=== PATIENT | male | born 1980 | race Caucasian/White ===

== ENCOUNTER 2018-09-09 13:50 | Emergency (ER) | payer BC ==
[~2018-09-09] VITALS: Ht 165.1 cm; Wt 77.2 kg
[2018-09-09 13:58] VITALS: BP 153/87; PULSE 80; RESP 20; Ht 165.1 cm; Wt 77.2 kg
--- NOTE | 2018-09-09 15:58 | ERD ---
ER Documentation Chief Complaint Chief Complaint Complains of feeling palpitations HPI 37-year-old male, previously healthy, presents to the emergency department complaining of sudden onset of dizziness, chest pain, palpitations associated with perioral numbness and finger paresthesias. The patient states that she has been under a lot of stress and persistent worrying about health and family. He has had similar episodes in the past but less intense, with extensive work-up in the emergency department, that according to the patient was negative for cardiovascular disease. He is not taking any medication at this time. History provided by patient. ROS All systems reviewed and are negative except as per history of present illness. Medications Home Meds Active Scripts Lorazepam* (Ativan*) 0.5 Mg Tablet, 0.5 MG PO Q8H PRN for ANXIETY, #10 TAB Prov:KATHRIN TERRAZAS MD 09/09/18 Allergies Allergies: Coded Allergies: No Known Allergy (Unverified , 09/09/18) PMhx/Soc History of Surgery: No Anesthesia Reaction: No Hx Neurological Disorder: No Hx Respiratory Disorders: No Hx Cardiac Disorders: No Hx Psychiatric Problems: No Hx Miscellaneous Medical Probl: Yes (high Cholesterol) Hx Alcohol Use: Yes (socially) Hx Substance Use: No Hx Tobacco Use: No Smoking Status: Current every day smoker FmHx Family History: No diabetes, No coronary disease Physical Exam Vitals Vital Signs Date Temp Pulse Resp B/P (MAP) Pulse Ox O2 O2 Flow FiO2 Time Delivery Rate 09/09/18 99.4 80 20 153/87 100 13:58 (109) Physical Exam Const: No acute distress Head: Atraumatic Eyes: Normal Conjunctiva ENT: Normal External Ears, Nose and Mouth. Neck: Full range of motion. No meningismus. Resp: Clear to auscultation bilaterally Cardio: Regular rate and rhythm, no murmurs Abd: Soft, non tender, non distended. Normal bowel sounds Skin: No petechiae or rashes Back: No midline or flank tenderness Ext: No cyanosis, or edema Neur: Awake and alert Psych: Normal Mood and Affect Results 24 hrs EKG read by me: Rate/Rhythm: Regular rate and rhythm at a rate of 67 Intervals: Normal No acute ST changes. No T wave inversion Impression: No evidence of acute ischemia or arrhythmia Procedures/MDM Patient presents complaining of one episode today of chest pain, palpitations, shortness of breath and perioral paresthesias. Vital signs stable, Physical exam unremarkable, neurovascular exam intact. Differential diagnosis include but not limited to: Depression, anxiety, migraine, thyroid disease, electrolyte imbalance. Low suspicion for acute coronary event, aortic dissection, CVA. Pertinent Data: 12 Lead ECG: Sinus rhythm, no ST changes, normal T wave, normal intervals Physical examination and clinical presentation consistent most likely with anxiety. During the ED course the patient remained stable, no new complaints. Results and clinical impression discussed with patient who agrees with management. The patient is stable to be treated outpatient and will be discharged home with a Rx for lorazepam, some side effects of prescribed medications (headache, rash, nausea, vomiting, diarrhea, drowsiness, habituation, bleeding, hypertension, interactions with other medications) were reviewed. The patient was instructed to follow up with the primary care provider in the next 48h. If symptoms persist, worsen or new symptoms develop, then patient should return to the ED immediately. Instructions explained and given directly by me to the patient with acknowledgment and demonstrated understanding. Disclaimer: Inadvertent spelling and grammatical errors are likely due to EHR/dictation software use and do not reflect on the overall quality of patient care. Also, please note that the electronic time recorded on this note does not necessarily reflect the actual time of the patient encounter. Departure Diagnosis: Primary Impression: Anxiety Condition: Stable Patient Instructions: Your Body's Response to Anxiety Additional Instructions: Thank you very much for allowing us to participate in your care. Your health and safety is our top priority at [facility]. Call your primary care doctor TOMORROW for an appointment during the next 2-4 days and bring all the information provided. Have prescriptions filled and follow precisely the directions on the label. If the symptoms get worse and your provider is unavailable, return to the Emergency Department immediately. KATHRIN TERRAZAS MD September 09, 2018 15:58
[2018-09-09] MEDS ORDERED: LORA-441 PO (15:59)
== END 2018-09-09 16:23 | disposition home or self-care (01) ==
LOC: FTE 13:50
DX: F41.9 Anxiety disorder, unspecified (principal); F17.210 Nicotine dependence, cigarettes, uncomplicated
CPT/HCPCS: 99283

== ENCOUNTER 2018-10-14 12:51 | Emergency (ER) | payer BC ==
[~2018-10-14] VITALS: Ht 172.7 cm; Wt 74.0 kg
[~2018-10-14 12:51] MED LIST: LORA-441 PO
[2018-10-14 12:59] VITALS: Ht 172.7 cm; Wt 74.0 kg
[2018-10-14] MEDS ORDERED: IBUP-1542 PO (13:23)
--- NOTE | 2018-10-14 13:27 | ERD ---
ER Documentation Chief Complaint Chief Complaint SOB, PALPATATIONS, CHEST PAIN ON RIGHT SIDE X30 MINUTES HPI This is a 38-year-old man complaining of sharp nonexertional nonradiating right- sided chest pain for the last 2 to 3 days, today he has had the pain for about 30 minutes but states usually last for a few seconds and resolve spontaneously, he has had similar symptoms in the past and states he feels anxious because his physician once told him he has hypercholesterolemia. He does have an appointment with his new primary care physician in 3 days and states he will have his cholesterol level checked again on Wednesday. Patient denies shortness of breath, no dizziness or loss of consciousness, no headache or blurry vision. Patient has no personal or family history of early coronary artery disease or sudden cardiac ROS All systems reviewed and are negative except as per history of present illness. Medications Home Meds Active Scripts Ibuprofen* (Motrin*) 600 Mg Tab, 600 MG PO Q8 PRN for PAIN AND/OR INFLAMMATION, #30 TAB Prov:RUSTY DYSON MD 10/14/18 Lorazepam* (Ativan*) 0.5 Mg Tablet, 0.5 MG PO Q8H PRN for ANXIETY, #10 TAB Prov:KATHRIN TERRAZAS MD 09/09/18 Allergies Allergies: Coded Allergies: No Known Allergy (Unverified , 09/09/18) PMhx/Soc Medical and Surgical Hx: pt denies Surgical Hx History of Surgery: No Anesthesia Reaction: No Hx Neurological Disorder: No Hx Respiratory Disorders: No Hx Cardiac Disorders: No Hx Psychiatric Problems: No Hx Miscellaneous Medical Probl: Yes (high Cholesterol) Hx Alcohol Use: Yes (socially) Hx Substance Use: No Hx Tobacco Use: No Smoking Status: Never smoker Physical Exam Vitals Vital Signs Date Temp Pulse Resp B/P (MAP) Pulse Ox O2 O2 Flow FiO2 Time Delivery Rate 10/14/18 98.0 69 20 124/77 100 Room Air 14:07 (93) 10/14/18 99.6 93 16 146/82 99 12:59 (103) Physical Exam GENERAL: Well-developed, well-nourished, well-hydrated, appears anxious, afebrile HEENT: Moist mucous membranes, pink conjunctiva, no cervical spine tenderness or step-off deformities, no goiter, no jaundice or icterus, extraocular movements intact without pain. No submandibular induration, and no pharyngeal erythema NEURO: Alert and oriented 3, cranial nerves II through XII intact bilaterally, pupils equal round reactive to light, no focal deficits or facial asymmetry, sensation intact distally Strength 5/5 in upper and lower extremities bilaterally CARDIAC: Tachycardic and regular, no murmurs rubs or gallops LUNGS: Clear bilaterally no wheezing crackles or stridor SKIN: Warm and dry to touch, no abrasions, contusions, or hematomas, no lacerations, no ecchymosis, no target lesions, and without ulcers EXTREMITIES: No clubbing cyanosis or edema, calves are bilaterally symmetrical, no Homans sign, no popliteal cord sign. Distal pulses equal and bilateral PSYCH: Anxious appearing Results 24 hrs Current Medications Medications Dose Sig/Letty Start Time Status Last (Trade) Ordered Route PRN Stop Time Admin Dose Reason Admin Ibuprofen 600 mg ONCE ONCE 10/14/18 DC 10/14/18 (Motrin) PO 13:30 13:27 10/14/18 13:31 Procedures/MDM EKG performed, read by me revealed a sinus tachycardia at 102 bpm, normal axis, narrow QRS complex, no concerning ST elevations or depressions noted. I administered ibuprofen 600 mg p.o. x1 for his symptoms. Patient felt much better after my explanation and reassurance regarding his symptoms. His tachycardia did resolve in the emergency department, and he does have follow-up with his PMD on Wednesday (in 3 days) and will have continued outpatient management with her including cholesterol recheck. Differential diagnoses considered, included but not limited to acute coronary syndrome, pulmonary embolism, aortic dissection, abdominal aortic aneurysm, sepsis, stroke, meningitis, encephalitis, pneumonia, appendicitis, cholecystitis, bowel obstruction, pyelonephritis, nephrolithiasis, cystitis, as well as metabolic, hematologic, and electrolyte abnormalities. As well as abscess, cellulitis, fractures, and dislocations. Patient feels much better at this time, and vital signs are normal, symptoms have improved. I did give strict instructions to return to the ED if symptoms continue or worsen, patient will otherwise follow-up with primary care physician. Patient understood instructions and agreed to plan. Disclaimer: Inadvertent spelling and grammatical errors are likely due to EHR/dictation software use and do not reflect on the overall quality of patient care. Also, please note that the electronic time recorded on this note does not necessarily reflect the actual time of the patient encounter. Departure Diagnosis: Primary Impression: Anxiety Additional Impression: Chest pain Chest pain type: unspecified Qualified Codes: R07.9 - Chest pain, unspecified Condition: Good Patient Instructions: Anxiety Reaction, Chest Pain, Noncardiac Referrals: JASON MADDOX MD (PCP) RUSTY DYSON MD Oct 14, 2018 13:27
[2018-10-14] MEDS ORDERED: IBUPROFEN 600 MG TAB PO ONE (13:30)
[2018-10-14 14:07] VITALS: BP 124/77; PULSE 69; RESP 20
== END 2018-10-14 14:11 | disposition home or self-care (01) ==
LOC: E/R 12:51
DX: R07.9 Chest pain, unspecified (principal); F41.9 Anxiety disorder, unspecified
CPT/HCPCS: 99283; Z7610

== ENCOUNTER 2018-10-30 14:42 | Emergency (ER) | payer BC ==
[~2018-10-30] VITALS: Ht 170.2 cm; Wt 74.4 kg
[~2018-10-30 14:42] MED LIST changes: +IBUP-1542 PO
[2018-10-30 14:46] VITALS: BP 142/86; PULSE 79; RESP 20; Ht 170.2 cm; Wt 74.4 kg
--- NOTE | 2018-10-30 15:35 | ERD ---
ER Documentation Chief Complaint Chief Complaint c/o left sided abd pain radiating to left testicles x3 days, nausea HPI 38-year-old male, present to the emergency department, complaining of 3 days with persistent left lower quadrant abdominal pain, radiating to the left testicle, associated with nausea. ROS All systems reviewed and are negative except as per history of present illness. Medications Home Meds Active Scripts Ibuprofen* (Motrin*) 400 Mg Tab, 400 MG PO Q6H PRN for PAIN AND OR ELEVATED TEMP, #20 TAB Prov:KATHRIN TERRAZAS MD 10/30/18 Acetaminophen* (Tylenol*) 325 Mg Tablet, 2 TAB PO Q6 PRN for PAIN AND OR ELEVATED TEMP, #20 TAB Prov:KATHRIN TERRAZAS MD 10/30/18 Ibuprofen* (Motrin*) 600 Mg Tab, 600 MG PO Q8 PRN for PAIN AND/OR INFLAMMATION, #30 TAB Prov:RUSTY DYSON MD 10/14/18 Lorazepam* (Ativan*) 0.5 Mg Tablet, 0.5 MG PO Q8H PRN for ANXIETY, #10 TAB Prov:KATHRIN TERRAZAS MD 09/09/18 Allergies Allergies: Coded Allergies: No Known Allergy (Unverified , 10/30/18) PMhx/Soc Medical and Surgical Hx: pt denies Medical Hx, pt denies Surgical Hx History of Surgery: No Anesthesia Reaction: No Hx Neurological Disorder: No Hx Respiratory Disorders: No Hx Cardiac Disorders: No Hx Psychiatric Problems: No Hx Miscellaneous Medical Probl: Yes (high Cholesterol) Hx Alcohol Use: Yes (socially) Hx Substance Use: No Hx Tobacco Use: No Smoking Status: Never smoker FmHx Family History: No diabetes, No coronary disease Physical Exam Vitals Vital Signs Date Temp Pulse Resp B/P (MAP) Pulse Ox O2 O2 Flow FiO2 Time Delivery Rate 10/30/18 98.5 79 20 142/86 100 14:46 (104) Physical Exam Const: No acute distress Head: Atraumatic Eyes: Normal Conjunctiva ENT: Normal External Ears, Nose and Mouth. Neck: Full range of motion. No meningismus. Resp: Clear to auscultation bilaterally Cardio: Regular rate and rhythm, no murmurs Abd: Soft, non tender, non distended. Normal bowel sounds Skin: No petechiae or rashes Back: No midline or flank tenderness Ext: No cyanosis, or edema Neur: Awake and alert Psych: Normal Mood and Affect Result Diagram: 10/30/18 1555 10/30/18 1555 Results 24 hrs Laboratory Tests Test 10/30/18 15:55 White Blood Count 7.9 10^3/ul Red Blood Count 4.91 10^6/ul Hemoglobin 14.6 g/dl Hematocrit 43.1 % Mean Corpuscular Volume 87.8 fl Mean Corpuscular Hemoglobin 29.7 pg Mean Corpuscular Hemoglobin Concent 33.9 g/dl Red Cell Distribution Width 12.0 % Platelet Count 203 10^3/UL Mean Platelet Volume 10.2 fl Immature Granulocytes % 0.400 % Neutrophils % 78.5 % Lymphocytes % 16.1 % Monocytes % 4.4 % Eosinophils % 0.3 % Basophils % 0.3 % Nucleated Red Blood Cells % 0.0 /100WBC Immature Granulocytes # 0.030 10^3/ul Neutrophils # 6.2 10^3/ul Lymphocytes # 1.3 10^3/ul Monocytes # 0.4 10^3/ul Eosinophils # 0.0 10^3/ul Basophils # 0.0 10^3/ul Nucleated Red Blood Cells # 0.0 10^3/ul Urine Color STRAW Urine Clarity CLEAR Urine pH 8.0 Urine Specific [place] 1.009 Urine Ketones NEGATIVE mg/dL Urine Nitrite NEGATIVE mg/dL Urine Bilirubin NEGATIVE mg/dL Urine Urobilinogen NEGATIVE mg/dL Urine Leukocyte Esterase NEGATIVE Debbie/ul Urine Hemoglobin NEGATIVE mg/dL Urine Glucose NEGATIVE mg/dL Urine Total Protein NEGATIVE mg/dl Sodium Level 143 mmol/L Potassium Level 4.4 mmol/L Chloride Level 105 mmol/L Carbon Dioxide Level 30 mmol/L Anion Gap 8 Blood Urea Nitrogen 15 mg/dl Creatinine 0.75 mg/dl Est Glomerular Filtrat Rate mL/min > 60 mL/min Glucose Level 99 mg/dl Calcium Level 9.7 mg/dl Total Bilirubin 0.6 mg/dl Direct Bilirubin 0.00 mg/dl Indirect Bilirubin 0.6 mg/dl Aspartate Amino Transf (AST/SGOT) 19 IU/L Alanine Aminotransferase (ALT/SGPT) 32 IU/L Alkaline Phosphatase 68 IU/L Total Protein 7.9 g/dl Albumin 4.6 g/dl Globulin 3.30 g/dl Albumin/Globulin Ratio 1.39 Lipase 36 U/L Current Medications Medications Dose Sig/Letty Start Time Status Last (Trade) Ordered Route PRN Stop Time Admin Dose Reason Admin Sodium 1,000 ml @ Q1H STAT 10/30/18 DC 10/30/18 Chloride 1,000 mls/hr IV 15:40 10/30/18 15:58 16:39 Morphine 2 mg ONCE STAT 10/30/18 DC Sulfate IV 15:40 10/30/18 (morphine) 15:42 Ondansetron 4 mg ONCE STAT 10/30/18 DC HCl (Zofran IV 15:40 10/30/18 Inj) 15:42 Famotidine 20 mg ONCE STAT 10/30/18 DC 10/30/18 (Pepcid Iv) IV 15:40 10/30/18 15:58 15:42 Patient: SABINE HENSLEY : 1980 Age: 38 Sex: M MR #: [id number] DOS: 10/30/18 1540 Ordering MD: KATHRIN TERRAZAS MD Location: [facility] Room/Bed: PROCEDURE: CT Abdomen and Pelvis without contrast. CLINICAL INDICATION: Abdominal Pain TECHNIQUE: CT scan of the abdomen and pelvis without IV contrast was performed on a multi-detector high-resolution CT scanner. Oral contrast was not administered. Coronal and sagittal reformatted images were obtained from the axial source images. DICOM images are available. Radiation dose: CTDIvol (mGy) = 9.29 ; total DLP (mGy-cm) = 558.10 One or more of the following dose reduction techniques were used: - Automated exposure control. - Adjustment of the mA and/or kV according to patient size. - Use of iterative reconstruction technique. COMPARISON: None. FINDINGS: In the absence of intravenous contrast, the study constitutes a limited assessment of the solid organs, bowel and vessels. Lower thorax: Normal. Liver: Normal. Biliary: Mild biliary sludge without evidence of cholecystitis. No biliary dilatation. Pancreas: Normal. Spleen: Normal. Adrenal Glands: Normal. Kidneys/Ureters: Punctate nonobstructing stone in the left kidney (series 3 image 50). No obstructing urolithiasis or hydroureternephrosis. Bladder: Wall thickening is likely related to its partially collapsed state. Reproductive organs: Normal. Gastrointestinal Tract: Scattered colonic diverticula without evidence of diverticulitis. No evidence of appendicitis. No dilated loops of small bowel to suggest obstruction. Peritoneum/Retroperitoneum: No free fluid or free air. Lymph nodes: No bulky adenopathy. Vessels: Normal. Abdominal/Pelvic Wall: Normal. Musculoskeletal: Mild multilevel degenerative changes of the spine. IMPRESSION: 1. Punctate nonobstructing stone in the left kidney. No obstructing urolithiasis or hydroureternephrosis. 2. Bladder wall thickening is likely related to its partially collapsed state, a cystitis may be considered in the appropriate clinical setting. 3. Additional findings as detailed above. Procedures/MDM Vital signs stable. Differential diagnosis include but not limited to: UTI, colitis, gastroenteritis, kidney stones, irritable bowel syndrome, inflammatory bowel syndrome, malabsorption syndrome, cholelithiasis, food intolerance, medication side effect, pancreatitis, diverticulitis, bowel obstruction. Physical examination and clinical presentation consistent most likely with left lower quadrant abdominal pain without evidence of acute abdomen. CT of the abdomen showed left punctuated nonobstructive kidney stone which I consider is not the cause of the pain, and there is no clinical significance at this time. During the ED course the patient remained stable, no new complaints. The patient received treatment with IV fluids and IV medications presenting overall improvement of the symptoms. Results and clinical impression discussed with the patient who agrees with management. The patient is stable to be treated outpatient and will be discharged home; some side effects of prescribed medications (headache, rash, nausea, vomiting, diarrhea, drowsiness, habituation, bleeding, hypertension, interactions with other medications) were reviewed. The patient was informed that the evaluation in the emergency department has been done to rule out an acute emergency, therefore, chronic conditions like malignancy or other diseases have not been evaluated; therefore, the patient was instructed to follow up with the primary care provider in the next 48h. If symptoms persist, worsen or new symptoms develop, then patient should return to the ED immediately. Instructions explained and given directly by me to the patient with acknowledgment and demonstrated understanding. Disclaimer: Inadvertent spelling and grammatical errors are likely due to EHR/dictation software use and do not reflect on the overall quality of patient care. Also, please note that the electronic time recorded on this note does not necessarily reflect the actual time of the patient encounter. Departure Diagnosis: Primary Impression: Abdominal pain Condition: Stable Patient Instructions: Abdominal Pain Additional Instructions: Thank you very much for allowing us to participate in your care. Your health and safety is our top priority at [facility]. The evaluation in the emergency department has been done to rule out an acute emergency. Chronic, [id number] conditions may have not been evaluated; therefore, you need to follow up with a primary care provider in the next 48h. If symptoms persist, worsen or new symptoms develop, then patient should return to the ED immediately. Call your primary care doctor TOMORROW for an appointment during the next 2-4 days and bring all the information provided. Have prescriptions filled and follow precisely the directions on the label. If the symptoms get worse and your provider is unavailable, return to the Emergency Department immediately. KATHRIN TERRAZAS MD Oct 30, 2018 15:35
[2018-10-30] MEDS ORDERED: SOD CHLORIDE 0.9% 1,000 ML IV STA (15:40)
[2018-10-30] MEDS ORDERED: ONDANSETRON 4 MG INJ IV STA (15:40)
[2018-10-30] MEDS ORDERED: morphine 2 MG INJ IV STA (15:40)
[2018-10-30] MEDS ORDERED: FAMOTIDINE 20 MG INJ IV STA (15:40)
[2018-10-30] MEDS ORDERED: ACET325T33 PO (16:53)
[2018-10-30] MEDS ORDERED: IBUP-1561 PO (16:53)
== END 2018-10-30 17:32 | disposition home or self-care (01) ==
LOC: FTE 14:42
DX: R10.32 Left lower quadrant pain (principal)
CPT/HCPCS: 36415; 74176; 80053; 81003; 83690; 85025; 96374; 99285; J7030; Z7610; J2270; J2405

== ENCOUNTER 2018-11-12 12:54 | Emergency (ER) | payer BC ==
[~2018-11-12] VITALS: Ht 172.7 cm; Wt 72.8 kg
[~2018-11-12 12:54] MED LIST changes: +ACET325T33 PO; +IBUP-1561 PO
[2018-11-12 12:57] VITALS: BP 134/82; PULSE 87; RESP 14; Ht 172.7 cm; Wt 72.8 kg
[2018-11-12] MEDS ORDERED: KETOROLAC 60 MG INJ IM STA (13:28)
[2018-11-12] MEDS ORDERED: IBUP-1542 PO (14:07)
--- NOTE | 2018-11-12 14:07 | ERD ---
ER Documentation Chief Complaint Chief Complaint Pt with GUERRERO and L arm numbness X 5 days , worst today. HPI 38-year-old male presents to ED complaining of a headache x5 days. He states that the headache has been off and on but worse today. He states the headache is located at the left hemisphere of his head. He states that he has been taking Motrin which has been helping his headache normally. He reports that he felt slightly nauseated earlier today but did not vomit and he does not feel nauseated anymore. He denies any head trauma or injury. He reports history of similar events in the past he just takes Motrin to relieve his pain. He denies a past medical history. He denies any change in altered mental status, any muscle weakness, or any other symptoms. ROS All systems reviewed and are negative except as per history of present illness. Medications Home Meds Active Scripts Ibuprofen* (Motrin*) 600 Mg Tab, 600 MG PO Q6H PRN for PAIN AND OR ELEVATED TEMP, #30 TAB Prov:AMINATA BLANCO PA-C 11/12/18 Ibuprofen* (Motrin*) 400 Mg Tab, 400 MG PO Q6H PRN for PAIN AND OR ELEVATED TEMP, #20 TAB Prov:KATHRIN TERRAZAS MD 10/30/18 Acetaminophen* (Tylenol*) 325 Mg Tablet, 2 TAB PO Q6 PRN for PAIN AND OR ELEVATED TEMP, #20 TAB Prov:KATHRIN TERRAZAS MD 10/30/18 Ibuprofen* (Motrin*) 600 Mg Tab, 600 MG PO Q8 PRN for PAIN AND/OR INFLAMMATION, #30 TAB Prov:RUSTY DYSON MD 10/14/18 Lorazepam* (Ativan*) 0.5 Mg Tablet, 0.5 MG PO Q8H PRN for ANXIETY, #10 TAB Prov:KATHRIN TERRAZAS MD 09/09/18 Allergies Allergies: Coded Allergies: No Known Allergy (Unverified , 10/30/18) PMhx/Soc History of Surgery: No Anesthesia Reaction: No Hx Neurological Disorder: No Hx Respiratory Disorders: No Hx Cardiac Disorders: No Hx Psychiatric Problems: No Hx Miscellaneous Medical Probl: Yes (high Cholesterol) Hx Alcohol Use: Yes (socially) Hx Substance Use: No Hx Tobacco Use: No Smoking Status: Never smoker FmHx Family History: No diabetes Physical Exam Vitals Vital Signs Date Temp Pulse Resp B/P (MAP) Pulse Ox O2 O2 Flow FiO2 Time Delivery Rate 11/12/18 98.9 87 14 134/82 99 12:57 (99) Physical Exam Const: No acute distress Head: Atraumatic Eyes: Normal Conjunctiva, PERRLA ENT: Normal External Ears, Nose and Mouth. Neck: Full range of motion. No meningismus. Resp: Clear to auscultation bilaterally Cardio: Regular rate and rhythm Abd: Soft, non tender, non distended. Ext: No cyanosis, or edema Neur: Awake and alert, CN 2-12 intact, no pronator drift, equal strength and sensation bilat 5/5, able to follow commands appropriately Psych: Normal Mood and Affect Results 24 hrs Current Medications Medications Dose Sig/Letty Start Time Status Last (Trade) Ordered Route PRN Stop Time Admin Dose Reason Admin Ketorolac 60 mg ONCE STAT 11/12/18 DC 11/12/18 Tromethamine IM 13:28 13:40 (Toradol) 11/12/18 13:29 Procedures/MDM ED COURSE: The patient was stable throughout ED course. I kept the patient informed of laboratory and diagnostic imaging results throughout the ED course. MEDICATIONS GIVEN: Toradol Patient tolerated medication well with no adverse reactions. Patient reported improvement in pain. MEDICAL DECISION MAKING: Patient is a 38-year-old male complaining of headache x5 days. He denies any trauma or injury and reports history of similar events in the past. Patient's physical exam was unremarkable. No neuro deficits. Patient was cooperative and following commands appropriately. Patient was given an injection of Toradol in the ED which helped alleviate the pain. Patient states that he has an appointment with his primary care provider within the next few days in which I advised him to discuss migraine prophylaxis medication with him. H&P and other data not c/w emergent process (eg. Subarachnoid hemorrhage, acute vertebral or carotid dissection, intracranial mass, epidural hematoma, subdural hematoma, dural venous sinus thrombosis, giant cell arteritis, pseudotumor cerebri, meningitis, mass, intracranial bleed). Vital signs were reviewed. Patient is afebrile. Patient was not hypoxic. Patient was hemodynamically stable. Patient was told to follow up with primary care for further care and management. PRESCRIPTION: Motrin DISCHARGE: At this time, patient is stable for discharge and outpatient management. I have instructed the patient to follow-up with his/her primary care physician in 1-2 days. I have discussed with the patient the possibility of needing to see a specialist for further workup and imaging studies if symptoms persist. I have instructed the patient to promptly return to the ER for any new or worsening symptoms including increased pain, fever, nausea, vomiting, weakness or LOC. The patient expressed understanding of and agreement with this plan. All questions were answered. Home care instructions were provided. Disclaimer: Inadvertent spelling and grammatical errors are likely due to EHR/dictation software use and do not reflect on the overall quality of patient care. Also, please note that the electronic time recorded on this note does not necessarily reflect the actual time of the patient encounter. Departure Diagnosis: Primary Impression: Headache Headache type: unspecified Headache chronicity pattern: acute headache Intractability: not intractable Qualified Codes: R51 - Headache Condition: Fair Patient Instructions: Self-Care for Headaches Referrals: [facility] YOU HAVE RECEIVED A MEDICAL SCREENING EXAM AND THE RESULTS INDICATE THAT YOU DO NOT HAVE A CONDITION THAT REQUIRES URGENT TREATMENT IN THE EMERGENCY DEPARTMENT. FURTHER EVALUATION AND TREATMENT OF YOUR CONDITION CAN WAIT UNTIL YOU ARE SEEN IN YOUR DOCTORS OFFICE WITHIN THE NEXT 1-2 DAYS. IT IS YOUR RESPONSIBILITY TO MAKE AN APPOINTMENT FOR FOLOW-UP CARE. IF YOU HAVE A PRIMARY DOCTOR --you should call your primary doctor and schedule an appointment IF YOU DO NOT HAVE A PRIMARY DOCTOR YOU CAN CALL OUR PHYSICIAN REFERRAL HOTLINE AT IF YOU CAN NOT AFFORD TO SEE A PHYSICIAN YOU CAN CHOSE FROM THE FOLLOWING [facility] [address] [facility] [address] [facility] [address] [facility] [address] [facility] [address] [facility]. [facility]. [address] [facility]. [facility] YOU HAVE RECEIVED A MEDICAL SCREENING EXAM AND THE RESULTS INDICATE THAT YOU DO NOT HAVE A CONDITION THAT REQUIRES URGENT TREATMENT IN THE EMERGENCY DEPARTMENT. FURTHER EVALUATION AND TREATMENT OF YOUR CONDITION CAN WAIT UNTIL YOU ARE SEEN IN YOUR DOCTORS OFFICE WITHIN THE NEXT 1-2 DAYS. IT IS YOUR RESPONSIBILITY TO MAKE AN APPOINTMENT FOR FOLOW-UP CARE. IF YOU HAVE A PRIMARY DOCTOR --you should call your primary doctor and schedule and appointment IF YOU DO NOT HAVE A PRIMARY DOCTOR YOU CAN CALL OUR PHYSICIAN REFERRAL HOTLINE AT . IF YOU CAN NOT AFFORD TO SEE A PHYSICIAN YOU CAN CHOSE FROM THE FOLLOWING [facility] INSTITUTIONS: [facility] [address] [place] [address] [facility] [address] [place] [address] [facility] [address] [place] [address] Additional Instructions: Call your primary care doctor TOMORROW for an appointment during the next 1-2 days.See the doctor sooner or return here if your condition worsens before your appointment time. AMINATA BLANCO PA-C Nov 12, 2018 14:07
== END 2018-11-12 14:30 | disposition home or self-care (01) ==
LOC: FTE 12:54
DX: R51 Headache (principal)
CPT/HCPCS: 96372; 99284; J1885

== ENCOUNTER 2018-11-12 20:15 | Emergency (ER) | payer BC ==
[~2018-11-12] VITALS: Ht 165.1 cm; Wt 73.1 kg
[2018-11-12 20:24] VITALS: Ht 165.1 cm; Wt 73.1 kg
[2018-11-12] MEDS ORDERED: ACETAMINOPHEN 500 MG TAB PO STA (22:08)
--- NOTE | 2018-11-13 00:06 | ERD ---
ER Documentation Chief Complaint Chief Complaint Pt seen here 3 hours ago but "shot" did not help GUERRERO HPI This is a 38-year-old male patient who presents emergency room with multiple complaints. #1: Headache: Patient was just discharged from this ER 3 hours ago where he received a Toradol injection for his headache pain and at time of discharge pain was relieved. Pain radiates from left eye to back of left neck describes as tight sensation. Patient is declining any other medication at this time as he states it is "not that bad it is getting better." She and states he has ibuprofen prescription that he has not yet filled. #2: Chest wall pain: Patient states that he has had needlelike sensation to his left chest and left arm on and off for 1 week. Denies chest pain, no nausea, no chest pressure, no paresthesia, no weakness. Shortness of breath. No family history of cardiac disease. Does not smoke. ROS All systems reviewed and are negative except as per history of present illness. Medications Home Meds Active Scripts Ibuprofen* (Motrin*) 600 Mg Tab, 600 MG PO Q6H PRN for PAIN AND OR ELEVATED TEMP, #30 TAB Prov:AMINATA BLANCO PA-C 11/12/18 Ibuprofen* (Motrin*) 400 Mg Tab, 400 MG PO Q6H PRN for PAIN AND OR ELEVATED TEMP, #20 TAB Prov:KATHRIN TERRAZAS MD 10/30/18 Acetaminophen* (Tylenol*) 325 Mg Tablet, 2 TAB PO Q6 PRN for PAIN AND OR ELMER VATED TEMP, #20 TAB Prov:KATHRIN TERRAZAS MD 10/30/18 Ibuprofen* (Motrin*) 600 Mg Tab, 600 MG PO Q8 PRN for PAIN AND/OR INFLAMMATION, #30 TAB Prov:RUSTY DYSON MD 10/14/18 Lorazepam* (Ativan*) 0.5 Mg Tablet, 0.5 MG PO Q8H PRN for ANXIETY, #10 TAB Prov:KATHRIN TERRAZAS MD 09/09/18 Allergies Allergies: Coded Allergies: No Known Allergy (Unverified , 10/30/18) PMhx/Soc Medical and Surgical Hx: pt denies Surgical Hx History of Surgery: No Anesthesia Reaction: No Hx Neurological Disorder: No Hx Respiratory Disorders: No Hx Cardiac Disorders: No Hx Psychiatric Problems: No Hx Miscellaneous Medical Probl: Yes (high Cholesterol, KIDNEY STONES ) Hx Alcohol Use: Yes (socially) Hx Substance Use: No Hx Tobacco Use: No Smoking Status: Never smoker FmHx Family History: No diabetes, No coronary disease, No other Physical Exam Vitals Vital Signs Date Temp Pulse Resp B/P (MAP) Pulse Ox O2 O2 Flow FiO2 Time Delivery Rate 11/13/18 98.8 62 17 122/69 99 Room Air 00:26 (86) 11/12/18 99.2 81 16 130/70 99 20:24 (90) Physical Exam Const: No acute distress Head: No bruising, no swelling, no hematoma, no crepitus, no vascular pulsations or lesins Eyes: Normal Conjunctiva. PERRL, EOMI, no raccoon eyes ENT: Normal External Ears, TM clear BL, Nose without drainage or congestion. Pharynx pink, moist, no oral injury. Neck: Full range of motion. No meningismus. No cervical spinal tenderness. No lymphadenopathy Resp: Clear to auscultation bilaterally, no rales, rhonchi. Chest rise equal bilaterally. Cardio: Regular rate and rhythm, no murmurs Abd: Soft, non tender, non distended. Normal bowel sounds. No bruising. Skin: No petechiae or rashes, no abrasions, no hematomas. Back: No midline or flank tenderness, no point tenderness to spine, FROM Ext: No cyanosis, or edema, no deformities Neur: Awake and alert, CN II-XII intact, steady gait, clear speech, no pronator drift, equal smile, BL outreach specialist 5/5, sensation intact BL, negative R omberg, negative [id number]-[id number] test. Psych: Anxious Mood and Affect Results 24 hrs Current Medications Medications Dose Sig/Letty Start Time Status Last (Trade) Ordered Route PRN Stop Time Admin Dose Reason Admin 1,000 mg ONCE STAT 11/12/18 DC 11/12/18 Acetaminophen PO 22:08 22:26 (Tylenol 11/12/18 22:09 Tab) Procedures/MDM PROCEDURES/MDM EKG: Read by Dr. Gomez, attending physician. EKG shows normal sinus rhythm at a rate of 57 bpm. No arrhythmias, acute ST elevations or T wave changes were noted. DIAGNOSTIC IMAGING: Read by radiologist. FINDINGS: The cardiac silhouette is within normal limits. The aortic arch is unremarkable. There is no focal consolidation, vascular congestion or pleural effusion. There is no pneumothorax. The osseous structures are grossly intact. IMPRESSION: No acute cardiopulmonary process identified. PROCEDURES: none LAB INTERPRETATION: No blood work performed today -Medications: Tylenol Patient tolerated medication well with no adverse reactions. Patient reported improvement in pain. MDM: This is a 38-year-old male patient who presents emergency room with multiple complaints. Patient was also seen in this ER 3 hours prior to this visit. Patient also has several ER visits for complaints related to anxiety. Patient states he has been prescribed lorazepam however he is not taking it because he does not feel like he has anxiety. Patient states he has followed up with his primary care provider for his concern of anxiety, chest pain, headache, however specialist appointments with cardiology and neurology are not until December and patient feels like he should be seen today. Patient is well-appearing, clear speech, steady gait, no neurological deficits noted. Clinical and diagnostic exam not suggestive of infection, intracranial process, SAH, SDH, neoplasm, meningitis, encephalitis, aneurysm, thrombus, temporal arteritis, sinusitis. Patient's chest complaint has been evaluated today with chest x-ray which is normal as well as normal EKG. Patient does not complain of chest pain, does not state pain radiates, no pressure, patient denies medical problems such as high cholesterol, denies smoking, denies diabetes. Patient states pain comes and goes and is not related to activity or eating. Symptoms are not suggestive of cardiac ischemia, pulmonary embolus, aortic dissection, or other serious etiology. Patient has been given copy of EKG and chest x-ray with instructions to follow- up with his primary care provider with instructions on red flag signs and symptoms to return to the emergency room. Patient is also been counseled on use of his already prescribed medications such as ibuprofen, acetaminophen, Ativan. DISPOSITION and PLAN: RX: None The patient has been discharge home to follow-up with community physician. Departure Diagnosis: Primary Impression: Headache Headache type: unspecified Headache chronicity pattern: episodic headache Intractability: not intractable Qualified Codes: R51 - Headache Additional Impression: Costochondritis Condition: Stable CARLOSOLYA CALLEJAS Nov 13, 2018 00:06
[2018-11-13 00:26] VITALS: BP 122/69; PULSE 62; RESP 17
== END 2018-11-13 00:26 | disposition home or self-care (01) ==
LOC: FTE 20:15
DX: R51 Headache (principal); M94.0 Chondrocostal junction syndrome [Tietze]
CPT/HCPCS: 71046; 93005; 99284; Z7610

== ENCOUNTER 2018-11-25 22:28 | Emergency (ER) | payer BC ==
[~2018-11-25] VITALS: Ht 172.7 cm; Wt 73.6 kg
[~2018-11-25 22:28] MED LIST changes: +CYCL10TA7 PO
[2018-11-25 22:30] VITALS: BP 153/87; PULSE 67; RESP 18; Ht 172.7 cm; Wt 73.6 kg
[2018-11-26] MEDS ORDERED: DEXAMETHASONE 10 MG/ML 1 ML INJ IM ONE (01:30)
--- NOTE | 2018-11-26 05:03 | ERD ---
ER Documentation Chief Complaint Chief Complaint SOB SINCE YESTERDAY WITH CHEST PAIN HPI Patient is 38-year-old male presented to ED for shortness of breath chest pain and headache. Patient states this is happened in the past before. Patient states that he is under the treatment for physical therapy because he has a possible pinched nerve and they believe that is associated with his symptoms. Patient denies any allergies to medications. Patient states he was seen in the ED recently and was given a Toradol injection which helped. Patient states the pain is a 9 out of 10. Patient is presenting with vitals within normal limits ROS All systems reviewed and are negative except as per history of present illness. Medications Home Meds Active Scripts Ibuprofen* (Motrin*) 600 Mg Tab, 600 MG PO Q6, #30 TAB Prov:MULU DESAI PA-C 11/26/18 Cyclobenzaprine Hcl* (Cyclobenzaprine Hcl*) 10 Mg Tablet, 10 MG PO TID, #15 TAB Prov:MULU DESAI PA-C 11/26/18 Ibuprofen* (Motrin*) 600 Mg Tab, 600 MG PO Q6H PRN for PAIN AND OR ELEVATED TEMP, #30 TAB Prov:AMINATA BLANCO PA-C 11/12/18 Ibuprofen* (Motrin*) 400 Mg Tab, 400 MG PO Q6H PRN for PAIN AND OR ELEVATED TEMP, #20 TAB Prov:KATHRIN TERRAZAS MD 10/30/18 Acetaminophen* (Tylenol*) 325 Mg Tablet, 2 TAB PO Q6 PRN for PAIN AND OR ELEVATED TEMP, #20 TAB Prov:KATHRIN TERRAZAS MD 10/30/18 Ibuprofen* (Motrin*) 600 Mg Tab, 600 MG PO Q8 PRN for PAIN AND/OR INFLAMMATION, #30 TAB Prov:RUSTY DYSON MD 10/14/18 Lorazepam* (Ativan*) 0.5 Mg Tablet, 0.5 MG PO Q8H PRN for ANXIETY, #10 TAB Prov:KATHRIN TERRAZAS MD 09/09/18 Allergies Allergies: Coded Allergies: No Known Allergy (Unverified , 10/30/18) PMhx/Soc History of Surgery: No Anesthesia Reaction: No Hx Neurological Disorder: No Hx Respiratory Disorders: No Hx Cardiac Disorders: No Hx Psychiatric Problems: No Hx Miscellaneous Medical Probl: Yes (high Cholesterol, KIDNEY STONES ) Hx Alcohol Use: Yes (socially) Hx Substance Use: No Hx Tobacco Use: No Smoking Status: Never smoker FmHx Family History: No diabetes, No coronary disease, No other Physical Exam Vitals Vital Signs Date Temp Pulse Resp B/P (MAP) Pulse Ox O2 O2 Flow FiO2 Time Delivery Rate 11/25/18 98.5 67 18 153/87 100 22:30 (109) Physical Exam GENERAL: The patient is well-appearing, well-nourished, in no acute distress HEENT: Patient has good range of motion in his neck and can touch his chin to his chest. The patient does have mild pain to palpation on the left lateral aspect of his neck and I can feel a muscle spasm. NECK: C-spine is soft and supple. There is no meningismus. There is no cervical lymphadenopathy. CHEST: Clear to auscultation bilaterally. There are no rales, wheezes or rhonchi. Pain with palpation to the anterior aspect of the left pectoral muscle. HEART: Regular rate and rhythm. No murmurs, clicks, rubs or gallops. ABDOMEN:Soft, nontender and nondistended. Good bowel sounds. No rebound or guarding. No gross peritonitis. No gross organomegaly or masses. No Gallegos sign or McBurney point tenderness. BACK: No midline or flank tenderness. Results 24 hrs Current Medications Medications Dose Sig/Letty Start Time Status Last (Trade) Ordered Route PRN Stop Time Admin Dose Reason Admin 10 mg ONCE ONCE 11/26/18 DC 11/26/18 Dexamethasone IM 01:30 11/26/18 01:32 (Decadron) 01:31 Procedures/MDM ED course: The patient was stable throughout the ED course. The patient and/or family informed of laboratory and diagnostic imaging results throughout the ED course. EKG: Read by attending physician. EKG shows normal sinus rhythm at rate of 62 No arrhythmias, acute ST elevations or T wave changes were noted. Medications given in ER: Decadron Patient tolerated medication well with no adverse reactions. Patient reported improvement in pain. Medical decision making: Patient is a 38-year-old male presenting with chest pain shortness of breath and left-sided headache. Patient states he is being treated with physical therapy for a muscle strain in his neck which has been exacerbating his symptoms. The patient's physical exam was remarkable for pain to palpation to the anterior aspect of the left side of his chest. The patient has notable neck spasm on palpation. The patient's EKG was unremarkable. The patient had good S1-S2 sounds. The patient denies IV drug use and is not a diabetic. The patient has no puncture wounds on his arms. At this time I have low suspicion for endocarditis, pericarditis. Patient remained afebrile. Patient states he was seen here a week ago for the same symptoms and was given a Toradol injection which improved his symptoms. The patient is driving so I am not going to give him any cyclobenzaprine while he is in the ED but I will be given a prescription for it. The patient pain was reproduced with palpation to the anterior aspect of his chest today appears the patient has costochondritis. Upon reevaluation the patient appears to be doing much better. Advised patient if symptoms worsen he is to return to ER immediately. The patient is in agreement treatment plan and had no further questions upon discharge Prescription for home: Motrin Cyclobenzaprine I have discussed with the patient proper use and common side effects to expert with the medication . I advised the patient/family to speak with the pharmacist dispensing the medication to be advised of any potential drug interactions with other medication or supplements they may be taking. Discharge: At this time, patient is stable for discharge and outpatient management. I have instructed the patient to follow-up with his\her primary care physician in 1 to 2 days. I have discussed with the patient the possibility of needing to see a specialist for further work-up and imaging studies if symptoms persist. I have instructed the patient to promptly return to the ER for any new or worsening symptoms including increased pain, fever, nausea, vomiting, weakness or LOC. The patient and\or family expressed understanding of and agreement with this plan. All questions were answered. Home care instructions were provided. Disclaimer: Inadvertent spelling and grammatical errors are likely due to EHR\dictation software use and do not reflect on the overall quality of patient care. Also, please note that the electronic time recorded on the note does not necessarily reflect the actual time of the patient encounter. Departure Diagnosis: Primary Impression: Costochondritis Additional Impression: Headache Headache type: unspecified Headache chronicity pattern: acute headache Intractability: intractable Qualified Codes: R51 - Headache Condition: Stable Patient Instructions: Costochondritis Referrals: [facility] YOU HAVE RECEIVED A MEDICAL SCREENING EXAM AND THE RESULTS INDICATE THAT YOU DO NOT HAVE A CONDITION THAT REQUIRES URGENT TREATMENT IN THE EMERGENCY DEPARTMENT. FURTHER EVALUATION AND TREATMENT OF YOUR CONDITION CAN WAIT UNTIL YOU ARE SEEN IN YOUR DOCTORS OFFICE WITHIN THE NEXT 1-2 DAYS. IT IS YOUR RESPONSIBILITY TO MAKE AN APPOINTMENT FOR FOLOW-UP CARE. IF YOU HAVE A PRIMARY DOCTOR --you should call your primary doctor and schedule an appointment IF YOU DO NOT HAVE A PRIMARY DOCTOR YOU CAN CALL OUR PHYSICIAN REFERRAL HOTLINE AT IF YOU CAN NOT AFFORD TO SEE A PHYSICIAN YOU CAN CHOSE FROM THE FOLLOWING [facility] [address] [facility]. [facility] [address] [facility]. [facility] [address] [facility] [facility] [address] [facility] [address] [facility]. [facility] [address] [facility] [facility] YOU HAVE RECEIVED A MEDICAL SCREENING EXAM AND THE RESULTS INDICATE THAT YOU DO NOT HAVE A CONDITION THAT REQUIRES URGENT TREATMENT IN THE EMERGENCY DEPARTMENT. FURTHER EVALUATION AND TREATMENT OF YOUR CONDITION CAN WAIT UNTIL YOU ARE SEEN IN YOUR DOCTORS OFFICE WITHIN THE NEXT 1-2 DAYS. IT IS YOUR RESPONSIBILITY TO MAKE AN APPOINTMENT FOR FOLOW-UP CARE. IF YOU HAVE A PRIMARY DOCTOR --you should call your primary doctor and schedule and appointment IF YOU DO NOT HAVE A PRIMARY DOCTOR YOU CAN CALL OUR PHYSICIAN REFERRAL HOTLINE AT . IF YOU CAN NOT AFFORD TO SEE A PHYSICIAN YOU CAN CHOSE FROM THE FOLLOWING [facility] INSTITUTIONS: [facility] [address] [place] [address] [facility] [address] [place] [address] [facility] [address] [place] [address] Additional Instructions: Call your primary care doctor TOMORROW for an appointment during the next 1-2 days.See the doctor sooner or return here if your condition worsens before your appointment time. MULU DESAI PA-C Nov 26, 2018 05:03
== END 2018-11-26 02:14 | disposition home or self-care (01) ==
LOC: FTE 22:28
DX: M94.0 Chondrocostal junction syndrome [Tietze] (principal); R51 Headache
CPT/HCPCS: 93005; 96372; J1100

== ENCOUNTER 2018-11-29 21:05 | Emergency (ER) | payer BC ==
[~2018-11-29] VITALS: Ht 172.7 cm; Wt 73.3 kg
[2018-11-29 21:11] VITALS: Ht 172.7 cm; Wt 73.3 kg
--- NOTE | 2018-11-29 21:40 | ERD ---
ER Documentation Chief Complaint Chief Complaint C/O GUERRERO AND DIZZINESS X2 DAYS, SEEN HERE FOR SAME 2 DAYS AGO HPI Patient is a 38-year-old male with back pain and anxiety who presents with gio arechiga. The patient has had dizziness for the past 2 days. Today was worse. He said that he fell 5 times recently. He denies anxiety although he has had diagnosis of anxiety in the past with previous visits. He said then when he gets a headache he also gets chest pain. He said that his mouth feels dry. He did have a chest x-ray done on November 12 which was negative but he has never had a CT scan done of his brain. Upon review of old medical records this is the patient's seventh visit to the ER since August 2018. Review of the emergency department information exchange system shows visits to 2 separate emergency departments for a total of 8 visits over the past 1 year. ROS All systems reviewed and are negative except as per history of present illness. Medications Home Meds Active Scripts Ibuprofen* (Motrin*) 600 Mg Tab, 600 MG PO Q6, #30 TAB Prov:MULU DESAI PA-C 11/26/18 Cyclobenzaprine Hcl* (Cyclobenzaprine Hcl*) 10 Mg Tablet, 10 MG PO TID, #15 TAB Prov:MULU DESAI PA-C 11/26/18 Ibuprofen* (Motrin*) 600 Mg Tab, 600 MG PO Q6H PRN for PAIN AND OR ELEVATED TEMP, #30 TAB Prov:AMINATA BLANCO PA-C 11/12/18 Ibuprofen* (Motrin*) 400 Mg Tab, 400 MG PO Q6H PRN for PAIN AND OR ELEVATED TEMP, #20 TAB Prov:KATHRIN TERRAZAS MD 10/30/18 Acetaminophen* (Tylenol*) 325 Mg Tablet, 2 TAB PO Q6 PRN for PAIN AND OR ELEVATED TEMP, #20 TAB Prov:KATHRIN TERRAZAS MD 10/30/18 Ibuprofen* (Motrin*) 600 Mg Tab, 600 MG PO Q8 PRN for PAIN AND/OR INFLAMMATION, #30 TAB Prov:RUSTY DYSON MD 10/14/18 Lorazepam* (Ativan*) 0.5 Mg Tablet, 0.5 MG PO Q8H PRN for ANXIETY, #10 TAB Prov:KATHRIN TERRAZAS MD 09/09/18 Allergies Allergies: Coded Allergies: No Known Allergy (Unverified , 10/30/18) PMhx/Soc Medical and Surgical Hx: pt denies Surgical Hx History of Surgery: No Anesthesia Reaction: No Hx Neurological Disorder: No Hx Respiratory Disorders: No Hx Cardiac Disorders: No Hx Psychiatric Problems: No Hx Miscellaneous Medical Probl: Yes (high Cholesterol, KIDNEY STONES ) Hx Alcohol Use: Yes (socially) Hx Substance Use: No Hx Tobacco Use: Yes Smoking Status: Current every day smoker FmHx Family History: No diabetes Physical Exam Vitals Vital Signs Date Temp Pulse Resp B/P (MAP) Pulse Ox O2 O2 Flow FiO2 Time Delivery Rate 11/29/18 98.1 94 20 163/97 100 21:11 (119) Physical Exam Const: No acute distress Head: Atraumatic Eyes: Normal Conjunctiva ENT: Normal External Ears, Nose and Mouth. Neck: Full range of motion. No meningismus. Resp: Clear to auscultation bilaterally Cardio: Regular rate and rhythm, no murmurs Abd: Soft, non tender, non distended. Normal bowel sounds Skin: No petechiae or rashes Back: No midline or flank tenderness Ext: No cyanosis, or edema Neur: Awake and alert, cranial nerves II through XII are intact, shortness 5 out of 5 in all 4 extremities, no slurred speech Psych: Normal Mood and Affect Procedures/MDM EKG read by me: Rate/Rhythm: Regular rate and rhythm at a rate of 71 Intervals: Normal Impression: No evidence of ischemia or arrhythmia CT brain negative per radiology. Patient is a 38-year-old male who presents with dizziness and chest pain. EKG was normal. CT scan of the brain was negative. At this point I doubt int rarenal mass, intrarenal hemorrhage, stroke, or acute coronary syndrome. I believe outpatient management is appropriate but the patient will need close follow-up with his primary doctor. The patient can return for any worsening symptoms. I do believe this is most likely related to anxiety and not to any serious organic or life-threatening etiology. Departure Diagnosis: Primary Impression: Dizziness Condition: OMAIRA Mchugh MD Nov 29, 2018 21:40
[2018-11-30 00:12] VITALS: BP 132/78; PULSE 72; RESP 19
== END 2018-11-30 00:13 | disposition home or self-care (01) ==
LOC: FTE 21:05
DX: R42 Dizziness and giddiness (principal); F17.210 Nicotine dependence, cigarettes, uncomplicated
CPT/HCPCS: 70450; 93005

== ENCOUNTER 2018-12-02 12:33 | Emergency (ER) | payer BC ==
[~2018-12-02] VITALS: Ht 172.7 cm; Wt 71.1 kg
[2018-12-02 12:45] VITALS: BP 136/80; PULSE 73; RESP 18; Ht 172.7 cm; Wt 71.1 kg
[2018-12-02] MEDS ORDERED: ONDANSETRON (ODT) 4 MG TAB ODT STA (13:04)
[2018-12-02] MEDS ORDERED: HYDROCODONE/APAP (5/325) TAB PO ONE (13:30)
--- NOTE | 2018-12-02 14:24 | ERD ---
ER Documentation Chief Complaint Chief Complaint left sided ap x 4 days. constipation HPI 38-year-old male is here with right mid abdominal pain that is had for about 5 days. No nausea vomiting or diarrhea. No fever. He does state he has had some constipation but has had normal bowel movements. No dark or bloody stools. No flank pain dysuria hematuria frequency. ROS All systems reviewed and are negative except as per history of present illness. Medications Home Meds Active Scripts Ibuprofen* (Motrin*) 600 Mg Tab, 600 MG PO Q6, #30 TAB Prov:MULU DESAI PA-C 11/26/18 Cyclobenzaprine Hcl* (Cyclobenzaprine Hcl*) 10 Mg Tablet, 10 MG PO TID, #15 TAB Prov:MULU DESAI PA-C 11/26/18 Ibuprofen* (Motrin*) 600 Mg Tab, 600 MG PO Q6H PRN for PAIN AND OR ELEVATED TEMP, #30 TAB Prov:AMINATA BLANCO PA-C 11/12/18 Ibuprofen* (Motrin*) 400 Mg Tab, 400 MG PO Q6H PRN for PAIN AND OR ELEVATED TEMP, #20 TAB Prov:KATHRIN TERRAZAS MD 10/30/18 Acetaminophen* (Tylenol*) 325 Mg Tablet, 2 TAB PO Q6 PRN for PAIN AND OR ELEVATED TEMP, #20 TAB Prov:KATHRIN TERRAZAS MD 10/30/18 Ibuprofen* (Motrin*) 600 Mg Tab, 600 MG PO Q8 PRN for PAIN AND/OR INFLAMMATION, #30 TAB Prov:RUSTY DYSON MD 10/14/18 Lorazepam* (Ativan*) 0.5 Mg Tablet, 0.5 MG PO Q8H PRN for ANXIETY, #10 TAB Prov:KATHRIN TERRAZAS MD 09/09/18 Allergies Allergies: Coded Allergies: No Known Allergy (Unverified , 10/30/18) PMhx/Soc History of Surgery: No Anesthesia Reaction: No Hx Neurological Disorder: No Hx Respiratory Disorders: No Hx Cardiac Disorders: No Hx Psychiatric Problems: No Hx Miscellaneous Medical Probl: Yes (high Cholesterol, KIDNEY STONES ) Hx Alcohol Use: Yes (socially) Hx Substance Use: No Hx Tobacco Use: Yes Smoking Status: Current every day smoker FmHx Family History: No diabetes Physical Exam Vitals Vital Signs Date Temp Pulse Resp B/P (MAP) Pulse Ox O2 O2 Flow FiO2 Time Delivery Rate 12/02/18 99.0 73 18 136/80 100 12:45 (98) Physical Exam INITIAL VITAL SIGNS: Reviewed by me GENERAL: Awake, alert and oriented x 4, well appearing, nontoxic, speaking in full sentences. No acute distress HEAD: Atraumatic RESPIRATORY: Clear to auscultation bilaterally. Symmetric chest wall rise. No wheezing or rales. No accessory muscle use. CV: Regular rate and rhythm. No murmurs, rubs, or gallops. ABDOMEN: Soft, non-distended. Nontender. Negative [place]. Negative Mc[place]neys point tenderness. No CVA tenderness bilaterally. No guarding. No rebound. Result Diagram: 12/02/18 1326 12/02/18 1326 Results 24 hrs Laboratory Tests Test 12/02/18 13:26 White Blood Count 6.4 10^3/ul Red Blood Count 5.12 10^6/ul Hemoglobin 15.6 g/dl Hematocrit 46.2 % Mean Corpuscular Volume 90.2 fl Mean Corpuscular Hemoglobin 30.5 pg Mean Corpuscular Hemoglobin Concent 33.8 g/dl Red Cell Distribution Width 11.8 % Platelet Count 235 10^3/UL Mean Platelet Volume 10.0 fl Immature Granulocytes % 0.300 % Neutrophils % 70.4 % Lymphocytes % 23.5 % Monocytes % 4.5 % Eosinophils % 0.8 % Basophils % 0.5 % Nucleated Red Blood Cells % 0.0 /100WBC Immature Granulocytes # 0.020 10^3/ul Neutrophils # 4.5 10^3/ul Lymphocytes # 1.5 10^3/ul Monocytes # 0.3 10^3/ul Eosinophils # 0.1 10^3/ul Basophils # 0.0 10^3/ul Nucleated Red Blood Cells # 0.0 10^3/ul Urine Color YELLOW Urine Clarity CLEAR Urine pH 7.0 Urine Specific [place] 1.008 Urine Ketones NEGATIVE mg/dL Urine Nitrite NEGATIVE mg/dL Urine Bilirubin NEGATIVE mg/dL Urine Urobilinogen NEGATIVE mg/dL Urine Leukocyte Esterase NEGATIVE Debbie/ul Urine Hemoglobin NEGATIVE mg/dL Urine Glucose NEGATIVE mg/dL Urine Total Protein NEGATIVE mg/dl Sodium Level 140 mmol/L Potassium Level 4.0 mmol/L Chloride Level 100 mmol/L Carbon Dioxide Level 33 mmol/L Anion Gap 7 Blood Urea Nitrogen 15 mg/dl Creatinine 0.80 mg/dl Est Glomerular Filtrat Rate mL/min > 60 mL/min Glucose Level 94 mg/dl Calcium Level 10.1 mg/dl Total Bilirubin 0.7 mg/dl Direct Bilirubin 0.00 mg/dl Indirect Bilirubin 0.7 mg/dl Aspartate Amino Transf (AST/SGOT) 22 IU/L Alanine Aminotransferase (ALT/SGPT) 49 IU/L Alkaline Phosphatase 76 IU/L Total Protein 8.6 g/dl Albumin 4.9 g/dl Globulin 3.70 g/dl Albumin/Globulin Ratio 1.32 Lipase 68 U/L Current Medications Medications Dose Sig/Letty Start Time Status Last (Trade) Ordered Route PRN Stop Time Admin Dose Reason Admin 1 tab ONCE ONCE 12/02/18 DC Acetaminophen PO 13:30 12/02/18 / 13:31 Hydrocodone Bitart ([place] (5/325)) Ondansetron 4 mg ONCE STAT 12/02/18 DC HCl (Zofran ODT 13:04 12/02/18 Odt) 13:06 Procedures/MDM The differential diagnosis includes but is not limited to appendicitis, cholelithiasis, cholecystitis, pancreatitis, hepatitis, gastritis, peptic ulcer disease, bowel obstruction, diverticulitis, renal disease including stones, torsion, AAA, pyelonephritis, and others. Laboratory analysis shows no evidence of acute emergent abnormality. No evidence of significant leukocytosis suggesting systemic infection or severe anemia. No evidence of acute renal or liver failure, no evidence of severe alkalosis or acidosis. CT unremarkable. Patient counseled regarding my diagnostic impression and care plan. Prior to discharge all questions answered. Pt agrees with treatment plan and understands strict return precautions. Pt is instructed to follow up with primary care provider within 24-48 hours. Precautionary instructions provided including instructions to return to the ER if not improving or for any worsening or changing symptoms or concerns. Departure Diagnosis: Primary Impression: Abdominal pain Condition: Stable Patient Instructions: Abdominal Pain Additional Instructions: Call your primary care doctor TOMORROW for an appointment during the next 1-2 da ys.See the doctor sooner or return here if your condition worsens before your appointment time. KLAUS BECKMAN PA-C Dec 02, 2018 14:24 KATHRIN TERRAZAS MD Dec 02, 2018 14:30
== END 2018-12-02 14:33 | disposition home or self-care (01) ==
LOC: FTE 12:33
DX: R10.9 Unspecified abdominal pain (principal); F17.210 Nicotine dependence, cigarettes, uncomplicated
CPT/HCPCS: 74176; 80053; 81003; 83690; 85025; 99284; Z7610

== ENCOUNTER 2018-12-09 21:09 | Emergency (ER) | payer BC ==
[~2018-12-09] VITALS: Ht 170.2 cm; Wt 72.7 kg
[2018-12-09 21:14] VITALS: BP 156/69; PULSE 97; RESP 20; Ht 170.2 cm; Wt 72.7 kg
== END 2018-12-09 23:09 | disposition home or self-care (01) ==
LOC: FTE 21:09
DX: R42 Dizziness and giddiness (principal); R55 Syncope and collapse; F17.210 Nicotine dependence, cigarettes, uncomplicated
CPT/HCPCS: 82962; 93005